=== PATIENT | male | born 1945 | race Caucasian/White ===

== ENCOUNTER → 2017-08-25 | Outpatient (CLI) | payer OTHER | LOC: BMCIMAGING 11:25 | PROVIDERS: ATTEND Neurological Surgery | DX: M51.36 Other intervertebral disc degeneration, lumbar region (principal); M53.86 Other specified dorsopathies, lumbar region ==

== ENCOUNTER 2017-10-11 05:41 | Inpatient (IN) | payer OTHER ==
[2017-10-11] MEDS ORDERED: ceFAZolin 2 GM/SWFI 2 GM/20 ML SYR IVP ONE (05:50)
[2017-10-11] MEDS ORDERED: GABAPENTIN 300 MG CAP PO ONE (05:50)
[2017-10-11] MEDS ORDERED: ACETAMINOPHEN 500 MG TAB PO ONE (05:50)
[2017-10-11] MEDS ORDERED: morphINE PF 5 MG/10 ML INJ IT ONE (05:50)
[2017-10-11] MEDS ORDERED: BUPIVACAINE 0.25% 30 ML SDV ONE (06:39)
[2017-10-11] MEDS ORDERED: THROMBIN (BOVINE) 20,000 UNIT VIAL TP ONE (06:39)
[2017-10-11] MEDS ORDERED: CHLORHEXIDINE GLUC HIBICLENS 118 ML BTL TP ONE (06:40)
[2017-10-11] MEDS ORDERED: CITRATE DEXTROSE SOLN 500 ML BAG ONE ×2 (06:40→07:44)
[2017-10-11] MEDS ORDERED: BACITRACIN 50,000 UNITS/10 ML SYR IRR ONE (06:41)
[2017-10-11] MEDS ORDERED: PROPOFOL 200 MG/20 ML VIAL ONE (06:43)
[2017-10-11] MEDS ORDERED: REMIFENTANIL HCL 1 MG VIAL ONE ×2 (06:43→09:50)
[2017-10-11] MEDS ORDERED: fentaNYL 100 MCG/2 ML INJ ONE (06:43)
[2017-10-11] MEDS ORDERED: PROPOFOL/EMULSION 500 MG/50 ML BOTTLE IV ONE ×2 (06:43→09:50)
[2017-10-11] MEDS ORDERED: LIDOCAINE 2% 100 MG/5 ML SYR ONE (06:48)
--- NOTE | 2017-10-11 06:51 | PDHPUP ---
History & Physical Update H&P update statement: This history and physical update is based on an assessment of the patient which was completed after admission or registration (within 24 hours), but prior to the surgery/procedure. H&P update: H&P reviewed & patient examined, no change in patient's condition since H&P completed H&P changes: Consents signed and sited marked. All questions answered.
--- NOTE | 2017-10-11 07:03 | PDANEPAE ---
ANE History of Present Illness 71 yo M with lumbar radiculopathy here L3-S1 TLIF ANE Past Medical History - Cardiovascular History Hx Hypertension: Yes Hx Arrhythmias: No Hx Chest Pain: No Hx Coronary Artery / Peripheral Vascular Disease: No Hx CHF / Valvular Disease: No Hx Palpitations: No Cardiovascular History Comment: HX OF DVT - Pulmonary History Hx COPD: Yes Hx Asthma/Reactive Airway Disease: No Hx Recent Upper Respiratory Infection: No Hx Oxygen in Use at Home: No Hx Sleep Apnea: No Sleep Apnea Screening Result - Last Documented: Positive Pulmonary History Comment: MILD COPD. pneumonia 2009-resolved - Neurologic History Hx Cerebrovascular Accident: No Hx Seizures: No Hx Dementia: No - Endocrine History Hx Diabetes: No - Renal History Hx Renal Disorders: Yes Renal History Comment: radical prostatectomy for CA 2008 - Liver History Hx Hepatic Disorders: No - Neurological & Psychiatric Hx Hx Neurological and Psychiatric Disorders: Yes Neurological / Psychiatric History Comment: ANXIETY. CLINICAL DEPRESSION. OCD - Cancer History Hx Cancer: Yes Cancer History Comment: PROSTATE. BASAL CELL SKIN CA removed - Congenital Disorder History Hx Congenital Disorders: No - GI History Hx Gastrointestinal Disorders: Yes Gastrointestinal History Comment: diverticulitis. colonoscopy 2012-1 polyp - Other Health History Other Health History: BRUISES EASILY, anemia in past takes iron. osteoarthritis all joints. bilateral dentures. blood clot R leg post knee scope 2010. Coumadin < than 1 yr. - Chronic Pain History Chronic Pain: Yes (IN ANKLE FROM BREAK 7 MONTHS AGO) - Surgical History Prior Surgeries: I & D OF RIGHT ANKLE 09/2013. ORIF 08/26. ORIF R TIBIA 2012. I&D R ankle 07/27. I&D 11/27. remove hardware R ankle 01/25. total prostatectomy 2008. R knee plasty 2010. REMOVAL OF HARDWARE 01/25. OR AFTER ACCIDENT 05/2013. RADICAL PROSTATECTOMY 2008. KNEE REPLACEMENT RIGHT KNEE 2010. BROKEN LEFT ANKLE RESULTING IN 2 OPERATIONS REPAIR AND REMOVAL OF HARDWARE. RIGHT ROTATOR CUFF REPAIRS ANE Review of Systems Review of Systems: - Exercise capacity METS (RN): 4 METS ANE Patient History - Allergies Allergies/Adverse Reactions: No Known Allergies Allergy (Unverified 09/12/17 11:34) - Home Medications Home Medications: ARIPiprazole [Abilify 2 mg (*)] 2 mg PO DAILY 06/12/13 [Last Taken 10/11/17 04: 00] Diazepam [Valium 5 MG (*)] 5 - 10 mg PO DAILY PRN 06/12/13 [Last Taken 10/10/17 18:00 20mg] Ferrous Sulfate [Ferrous Sulf 325 MG (*)] 325 mg PO DAILY 06/12/13 [Last Taken 10/04/17] Multivitamins [Multivitamin (*)] 1 tab PO DAILY 07/06/13 [Last Taken 10/04/17] Spencer-3 Fatty Acids [Fish Oil 1000 mg (*)] 2,000 mg PO DAILY 10/09/13 [Last Taken 10/04/17] Aspirin [Aspirin 81mg (*)] 81 mg PO DAILY 09/12/17 [Last Taken 10/04/17] Cholecalciferol Vit D3 [Vitamin D3 2000 units tab (OTC)] 2,000 units PO DAILY [Last Taken 10/04/17] Citalopram Hydrobromide [celeXA 10 MG] 10 mg PO DAILY 09/12/17 [Last Taken 10/11 04:00] Losartan/Hydrochlorothiazide [Losartan-Hctz 100-25 Mg Tab] 1 each PO DAILY 09/12 [Last Taken 10/10/17 08:00] buPROPion SR [Wellbutrin 100mg SR (*)] 100 mg PO DAILY 09/12/17 [Last Taken 04:00] - NPO status NPO Status: no food or drink >8 hours NPO Since - Liquids (Date): 10/10/17 NPO Since - Liquids (Time): 23:55 NPO Since - Solids (Date): 10/03/17 NPO Since - Solids (Time): 23:00 - Anes Hx Anes Hx: no prior problems - Smoking Hx Smoking Status: Former smoker - Alcohol Use Alcohol Use: Rarely - Family Anes Hx Family Anes Hx: none Family Hx Anesthesia Complications: NONE ANE Labs/Vital Signs - Vital Signs Blood Pressure: 129/82 Heart Rate: 76 Respiratory Rate: 18 O2 Sat (%): 94 Height: 177.8 cm Weight: 65.771 kg ANE Physical Exam - Airway Neck exam: FROM Mallampati Score: Class 2 Mouth exam: dentures - Pulmonary Pulmonary: no respiratory distress - Cardiovascular Cardiovascular: regular rate and rhythym - ASA Status ASA Status: III ANE Anesthesia Plan Anesthesia Plan: general endotracheal anesthesia Lines/Monitors: arterial line Total IV Anesthesia: Yes
[2017-10-11] MEDS ORDERED: MIDAZOLAM 2 MG/2 ML VIAL IVP ONE (07:04)
[2017-10-11] MEDS ORDERED: MIDAZOLAM 2 MG/2 ML VIAL ONE (07:13)
[2017-10-11] MEDS ORDERED: PHENYLEPHRINE HCL 100 MCG/ML SYR ONE (08:08)
[2017-10-11] MEDS ORDERED: morphINE PF 5 MG/10 ML INJ ONE (09:39)
[2017-10-11] MEDS ORDERED: SUGAMMADEX SODIUM 200 MG/2 ML VIAL IVP ONE (11:59)
[2017-10-11] MEDS ORDERED: ONDANSETRON 4 MG/2 ML VIAL IVP PRN ×2 (12:07→12:36)
[2017-10-11] MEDS ORDERED: NALOXONE HCL 0.4 MG/ML INJ IVP PRN (12:07)
[2017-10-11] MEDS ORDERED: HYDROmorphONE/DILAUDID 1 MG/ML INJ IVP PRN ×2 (12:07→12:36)
[2017-10-11] MEDS ORDERED: MEPERIDINE 25 MG/ML SYR IVP PRN (12:07)
[2017-10-11] MEDS ORDERED: PROMETHAZINE HCL 25 MG/ML INJ IVP PRN ×2 (12:07→12:36)
[2017-10-11] MEDS ORDERED: fentaNYL 100 MCG/2 ML INJ IVP PRN (12:07)
[2017-10-11] MEDS ORDERED: HYDROmorphONE/DILAUDID 2 MG/ML INJ ONE (12:11)
[2017-10-11] MEDS ORDERED: LACTULOSE 20 GM/30 ML UDCUP PO PRN (12:36)
[2017-10-11] MEDS ORDERED: POLYETHYLENE GLYCOL 3350 17 GM PKT PO PRN (12:36)
[2017-10-11] MEDS ORDERED: MAGNESIUM HYDROXIDE 30 ML UDCUP PO PRN (12:36)
[2017-10-11] MEDS ORDERED: METHOCARBAMOL 750 MG TAB PO PRN (12:36)
[2017-10-11] MEDS ORDERED: ONDANSETRON DISINTEGRATING 4 MG TAB PO PRN (12:36)
[2017-10-11] MEDS ORDERED: diphenhydrAMINE 25 MG CAP PO PRN (12:36)
[2017-10-11] MEDS ORDERED: BISACODYL 10 MG SUPP PR PRN (12:36)
--- NOTE | 2017-10-11 12:44 | POSTOPPROG ---
Post Op Note Date of Operation: 10/11/17 Surgeon: Matilda Fishman Academic Interventionist: Jamey Fishman PA-C Anesthesiologist: Marge Anesthesia: GET(General Endotracheal) Pre-op Diagnosis: lumbar stenosis Post-op Diagnosis: same Indication: Spinal cord compression Procedure: L3-5 laminectomy, L3-S1 TLIF and posterior fusion Findings: See dictation Inf/Abcess present in the surg proc area at time of surgery?: No Depth: Organ Space EBL: 100-500 Complications: none Drains: Walter GUZMÁN Addendum - Addendum .: S: PT in PACU, denies pain O: AAOx3 NAD VSS MAEx4 Motor 5/5 BUE/BLE +LT Incision cdi Jpx1 Rojas A: 71 yo M s/p L3-5 laminectomy, L3-S1 TLIF and posterior fusion P: PT/OT Pain management Brace when OOB TEDs, SCDs, lovenox POD#1 wound care consult - follows with wound care for non healing right yung ulcer, hx of skin graft Post op xrays pending Call NS with any issues D/w Dr Tobin
[2017-10-11] MEDS ORDERED: NS W/ 20 KCl/L 1,000 ML IV SCH (12:45)
[2017-10-11] MEDS ORDERED: LOSARTAN/HCTZ 50/12.5 1 TAB PO SCH (14:30)
[2017-10-11] MEDS: ACETAMINOPHEN 500 MG TAB PO SCH ×2 (14:52→21:31)
[2017-10-11] MEDS: ceFAZolin 2 GM/DEXTROSE 100 ML IV SCH ×2 (14:55→21:30)
[2017-10-11] MEDS: POLYETHYLENE GLYCOL 3350 17 GM PKT PO SCH ×2 (16:24→21:31)
--- NOTE | 2017-10-11 19:46 | GOP ---
[f rep st] OPERATIVE REPORT DATE OF OPERATION: 10/11/2017 SURGEON: Ranulfo Tobin MD BAKED AND GRAPHITE INSPECTOR: Matilda Fishman PA-C. ANESTHESIA: General. PREOPERATIVE DIAGNOSIS: 1. L3 through S1 lumbar spondylosis with scoliosis. 2. Spinal stenosis, L3 through L5. 3. Lateral recess and foraminal stenosis with lower extremity radiculopathy. 4. Lower extremity claudication. 5. Low back pain. 6. Treatment refractory to nonoperative intervention. POSTOPERATIVE DIAGNOSIS: 1. L3 through S1 lumbar spondylosis with scoliosis. 2. Spinal stenosis, L3 through L5. 3. Lateral recess and foraminal stenosis with lower extremity radiculopathy. 4. Lower extremity claudication. 5. Low back pain. 6. Treatment refractory to nonoperative intervention. PROCEDURE PERFORMED: 1. Posterior arthrodesis with approach to L3, L4, L5, S1. 2. Posterolateral fusion with bilateral pedicle screw placement at L3, L4, L5, S1 from the [employer] 4.75 system. 3. Decompressive laminectomy with bilateral mesial facetectomies, L3-L4, L4-L5. 4. Right-sided L5-S1 hemilaminotomy with mesial facetectomy, foraminotomy, nerve root decompression. 5. Left-sided L3-L4 transforaminal lumbar interbody fusion with a 7 x 28 mm titanium PEEK elevate cage filled with morselized autograft and allograft. 6. Right-sided L4-L5 transforaminal lumbar interbody fusion with an 8 x 28 mm titanium PEEK elevate cage filled with morselized autograft and allograft. 7. Right-sided L5-S1 transforaminal lumbar interbody fusion with a 7 x 23 mm titanium PEEK elevate cage filled with morselized autograft and allograft. 8. Posterolateral fusion on the right between L3-4 and left side between L4 and S1 with morselized autograft and allograft. 9. Use of intraoperative 3D Stealth navigation. 10. Use of intraoperative fluoroscopy, less than 1 hour physician time. 11. Use of neuromonitoring. 12. Use of the operating microscope. 13. Injection of preservative-free intrathecal narcotics. FINDINGS: per imaging SPECIMENS: None. ESTIMATED BLOOD LOSS: 300 mL. INDICATIONS: The patient is a 71-year-old gentleman who is very active. He presented with scoliosis and low back pain including claudication and radiculopathy. After failing nonoperative interventions, we decided to proceed forth with surgery as described above. DESCRIPTION OF PROCEDURE: Patient was brought to the operating theater and underwent general endotracheal anesthesia without complications. Venodyne, KELLI hose, and the appropriate lines were placed by Anesthesia. He was flipped prone onto the Walter table and all bony prominences inspected and padded. The lower lumbar region was prepped and draped in the usual sterile surgical fashion. A time-out was completed per protocol and the patient received antibiotics within 1 hour of incision. Using lateral fluoroscopy and a spinal needle, we picked our entry point to the L3 through S1 levels. This was marked in the midline. The incision was infiltrated with Marcaine with epinephrine. The incision was taken down with the scalpel blade and then using the monopolar, taken down the midline through the lumbodorsal fascia and subperiosteal dissection carried out to the transverse processes of L3, L4, L5, S1 bilaterally. Care was taken to preserve the L2-3 facet joint. He had a pretty noticeable scoliosis to the right. The 3D Stealth navigation clamp was attached to the spinous process of L5 and we completed a 3D Stealth navigation spin. Using 3D Stealth navigation, we placed the marine pilot holes for the bilateral pedicle screws into L3, L4, L5, and S1. All holes were manually palpated with no evidence of any cortical breaches. We then tapped and placed 6.5 x 50 mm screws bilaterally in L3, L4, L5, and 6.5 x 45 mm screws bilaterally in S1 from the [employer] Solara 4.75 system. Another 3D Stealth navigation spin demonstrated good placement of the hardware. At this point, the microscope was brought into field to assist with microscopic dissection to maintain illumination and magnification. Using a combination of bur tip on the drill bit, Kerrison punches, and Leksell rongeur, we completed a decompressive laminectomy with bilateral mesial facetectomies at L3-L4 and L4- L5. We also completed a resection of the pars with a foraminotomy on the left side at L3- L4 and right side at L4-L5. We then completed a right-sided L5-S1 hemilaminotomy with mesial facetectomy and foraminotomy with resection of the pars. We first moved up to the L3-L4 level on the left side where we distracted the interspace and completed a left-sided L3-L4 diskectomy. We prepared the cartilaginous endplates and measured the interbody space. We placed a 7 x 28 mm titanium PEEK elevate cage filled with morselized autograft and allograft anteriorly toward the midline. We packed additional morcellized autograft into the disk space for the interbody fusion. We let down the distraction, moved down on the right side to L4-5 where we distracted the interspace and completed a right-sided L4-5 diskectomy. We prepared the cartilaginous endplates and measured the interbody space. We placed an 8 x 28 mm titanium PEEK elevate cage filled with morselized autograft and allograft anteriorly toward the midline. We packed additional morcellized autograft in the disk space interbody fusion and let down the distraction. We then moved down on the right to L5-S1 where we distracted the interbody space on the right side and completed a right-sided L5-S1 diskectomy. We prepared the cartilaginous endplates and measured the interbody space. We placed a 7 x 23 mm titanium PEEK elevate cage filled with morselized autograft and allograft anteriorly toward the midline. We packed additional morcellized autograft into the disk space for the interbody fusion and then let down distraction. We decorticated the bone on the right side between L3-4 and left side between L4 and S1. We irrigated the wound copiously with bacitracin irrigation, placed 2 lordotic rods into the heads of the screws between L3 and S1 and completed a slight derotation maneuver to improve the patient's scoliosis. Given the patient's bone quality, however, we were limited in the amount of improvement we could have in his overall curvature. We then locked the rods in place with the cap screws, which were then tightened per the certified public accountant's setting. We injected preservative-free intrathecal narcotics. We placed morselized autograft and allograft on the right side between L3-4 and left side between L4 and S1 for the posterolateral fusion. A drain was left in the subfascial space and the wound was then closed in multiple layers using Vicryl sutures for the deep layers and Dermabond for the skin. The patient's wounds were dressed sterilely. He was flipped supine onto the transfer cart, where he was awakened, extubated, and taken to the recovery room in stable condition. There were no complications and no noted changes on neuromonitoring throughout the procedure. COMPLICATIONS: None. /[id number]/MODL MTDD
[2017-10-11] MEDS: FAMOTIDINE 20 MG TAB PO SCH (21:30)
[2017-10-11] MEDS: SENNOSIDES/DOCUSATE SODIUM TAB PO SCH (21:31)
--- NOTE | 2017-10-11 22:32 | POSTANESTH ---
Post Anesthetic Evaluation Cardiovascular Status: Normal, Stable, Similar to Pre-Op Cond Respiratory Status: Normal, Stable, Similar to Pre-op Cond. Level of Consciousness/Mental Status: Can Participate in Eval, Alert and Oriented Pain Control: Adequate, Prn Tx Ordered Nausea/Vomiting Control: Adequate, Prn Tx Ordered Complications Possibly Related to Anesthesia: None Noted
[2017-10-11] MEDS ORDERED: NS BOLUS 1000 ML (Wide open) IV ONE (23:00)
[2017-10-12] MEDS: ACETAMINOPHEN 500 MG TAB PO SCH ×3 (05:47→21:26)
--- NOTE | 2017-10-12 08:17 | NEUSURGPN ---
Date of Surgery: 10/11/17 Post Op Day: 1 Assessment/Plan: 71 yo M s/p L3-5 laminectomy, L3-S1 TLIF and posterior fusion PT/OT Pain management Brace when OOB ROSA output ~600ml last night, will check cbc this am-dressing dry TEDs, SCDs, lovenox start today wound care consult - follows with wound care for non healing right yung ulcer, hx of skin graft Post op xrays pending Call NS with any issues D/w Dr Tobin Subjective: Patient sitting in bed ordering breakfast Objective: AAOx3 MAEx4 Motor 5/5 BUE/BLE +LT Right lower leg wound Dressing x2 cdi Jpx1-patent Neuro Check Frequency: per routine Urinary Catheter in Place: No Catheter Insertion Date: 10/11/17 - Physician Discussed Patient with : Crista Neurosurgery Physical Exam - Vitals, I&O, Labs I and O 10/11/17 10/12/17 10/13/17 05:59 05:59 05:59 Intake Total 5790 300 Output Total 1245 80 Balance 4545 220 Weight 65.771 kg Intake: Oral (ml) 375 300 IV Intake (ml) 3200 IV Infused (ml) 2215 NS W/ 20 KCl/L 1,000 ml @ 1000 100 mls/hr IV CONT AGNES Rx#:[id number] Ns 1,000 ml @ Wide Open 1000 IV ONCE ONE Rx#: [id number] ceFAZolin 2 GM/DEXTROSE 215 100 ml @ 200 mls/hr IV Q8HRS [facility] Rx#:[id number] Output: Urine (ml) 300 Catheter 300 Estimated Blood Loss (ml) 300 ROSA Drain Output (ml) 645 80 #1 Posterior Back Walter 645 80 Carr Other: Intake Quantity Yes Sufficient Output Comment Catheter His olivo had a leak so it didn't collect anything Number of Voids Catheter 0 Vital Signs Temp Pulse Resp BP Pulse Ox 36.5 C 69 14 105/68 100 10/12/17 08:00 10/12/17 08:00 10/12/17 08:00 10/12/17 08:00 10/12/17 08:00 ICD10 Worksheet Patient Problems: Problems Problem Status Onset Fracture of proximal end of femur Active Cellulitis and abscess of lower leg Acute
[2017-10-12] MEDS ORDERED: NON-FORMULARY NEW DRUG (Losartan/Hydrochlorothiazide [Losartan-Hctz 100-25 Mg Tab] 1 EACH) PO SCH (09:00)
[2017-10-12] MEDS ORDERED: NON-FORMULARY NEW DRUG (Citalopram Hydrobromide [Celexa 10 Mg] 10 MG) PO SCH (09:00)
[2017-10-12 09:47] LABS: HEMATOCRIT 34.3 % (40.0-51.0); MEAN CELL HEMOGLOBIN 35.9 pg (27.9-34.1); MEAN CELL VOLUME 102.7 fL (81.5-99.8); RED BLOOD CELL COUNT 3.34 10^6/uL (4.40-6.38); RED CELL DISTRIBUTION WIDTH 11.7 % (11.5-15.2)
[2017-10-12] MEDS: POLYETHYLENE GLYCOL 3350 17 GM PKT PO SCH ×3 (09:59→21:26)
[2017-10-12] MEDS: ARIPiprazole 2 MG TAB PO SCH (10:00)
[2017-10-12] MEDS: buPROPion SR 100 MG TAB PO SCH (10:00)
[2017-10-12] MEDS: FAMOTIDINE 20 MG TAB PO SCH ×2 (10:01→21:26)
[2017-10-12] MEDS: MULTIVITAMINS 1 EACH TAB PO SCH (10:01)
[2017-10-12] MEDS: SENNOSIDES/DOCUSATE SODIUM TAB PO SCH ×2 (10:01→21:26)
[2017-10-12] MEDS: CITALOPRAM 20 MG TAB PO SCH (10:02)
[2017-10-12] MEDS: CHOLECALCIFEROL VIT D3 2,000 UNITS TAB/CAP PO SCH (10:02)
[2017-10-12] MEDS: FERROUS SULFATE 325 MG TAB PO SCH (10:02)
[2017-10-12] MEDS: LOSARTAN/HCTZ 50/12.5 1 TAB PO SCH (12:24)
[2017-10-12] MEDS: ENOXAPARIN 40 MG/0.4 ML SYR SC SCH (14:09)
--- NOTE | 2017-10-12 14:16 | ASMTCMCOM ---
CM Note CM Note Notes: Pt in for scheduled spinal surgery, dc needs unclear, PT/OT to eval. Of note pt admits to drinking a bottle of wine a night, may be helpful for SW to talk to pt regarding drinking habits. Date Signed: 10/12/2017 02:16 PM Electronically Signed By:Lynette Zayas RN
--- NOTE | 2017-10-12 16:39 | WOCRNPDOC ---
WOCRN Advanced Assessment Note - Skin Integrity Problem, Advanced Assess Right Ankle Unknown Dressing Type: Allevyn Life Dressing Description: Clean/Dry, Intact Exudate Amount: Scant Exudate Color: Clear, Yellow Exudate Characteristic(s): Serous Integumentary Issue Intervention: Dressing Changed Rachael Wound Tissue: Blanching, Erythema, Swollen Rachael Wound Swelling: Mild Wound Bed Color: Hastings Wound Bed Constitution: Red/Hastings - Non Granular Tissue Wound Edges: Epithelizing, Attached Site Measurement - Head-to-Toe Length X Width X Depth (cm): 0.7x0.8x0.2 Skin Integrity Problem Comment: 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 Allevyn removed. Wound bed cleaned with NS and gauze and measured. Rachael wound skin is red but not warm with scarring and the look of a chronic wound. Will continue with patient's home regiment as he is comfortable with the products. [facility] Wound care will round again early next week if he is still inpatient.
[2017-10-12] MEDS: oxyCODONE IR 5 MG TAB PO PRN (21:28)
[2017-10-13] MEDS: ACETAMINOPHEN 500 MG TAB PO SCH ×3 (05:50→21:50)
--- NOTE | 2017-10-13 07:26 | NEUSURGPN ---
Assessment/Plan: 71 yo M s/p L3-5 laminectomy, L3-S1 TLIF and posterior fusion PT/OT Optimize pain management LSO when OOB ROSA output taper down, will evaluate this afternoon for possible removal TEDs, SCDs, lovenox Appreciate wound care consult - follows with wound care for non healing right yung ulcer, hx of skin graft Post op xrays with intact hardware Call NS with any issues Seen by Dr Tobin and myself Subjective: low back pain, denies any new leg pain, weakness. Objective: NAD A7Ox3 MAEx4 5/ and equal in BUE and BLE. Incision c/d/i. ROSA drain serosanguineous Catheter Insertion Date: 10/11/17 - Physician Patient Seen by : Crista Neurosurgery Physical Exam - Vitals, I&O, Labs I and O 10/12/17 10/13/17 10/14/17 05:59 05:59 05:59 Intake Total 5790 1100 Output Total 1245 1310 Balance 4545 -210 Weight 65.771 kg Intake: Oral (ml) 375 800 IV Intake (ml) 3200 IV Infused (ml) 2215 300 NS W/ 20 KCl/L 1,000 ml @ 1000 300 100 mls/hr IV CONT AGNES Rx#:[id number] Ns 1,000 ml @ Wide Open 1000 IV ONCE ONE Rx#: [id number] ceFAZolin 2 GM/DEXTROSE 215 100 ml @ 200 mls/hr IV Q8HRS [facility] Rx#:[id number] Output: Urine (ml) 300 850 Catheter 300 Urinal 850 Estimated Blood Loss (ml) 300 ROSA Drain Output (ml) 645 460 #1 Posterior Back [place] 645 460 Carr Other: Intake Quantity Yes Yes Sufficient Output Comment Catheter His olivo had a leak so it didn't collect anything Number of Voids Catheter 0 Urinal 1 Vital Signs Temp Pulse Resp BP Pulse Ox 36.6 C 82 18 153/97 H 92 10/13/17 07:22 10/13/17 07:22 10/13/17 07:22 10/13/17 07:22 10/13/17 07:22 Laboratory Results 10/12/17 09:35 ICD10 Worksheet Patient Problems: Problems Problem Status Onset Fracture of proximal end of femur Active Cellulitis and abscess of lower leg Acute
[2017-10-13] MEDS: ENOXAPARIN 40 MG/0.4 ML SYR SC SCH (08:53)
[2017-10-13] MEDS: LOSARTAN/HCTZ 50/12.5 1 TAB PO SCH (08:54)
[2017-10-13] MEDS: buPROPion SR 100 MG TAB PO SCH (08:55)
[2017-10-13] MEDS: ARIPiprazole 2 MG TAB PO SCH (08:55)
[2017-10-13] MEDS: MULTIVITAMINS 1 EACH TAB PO SCH (08:55)
[2017-10-13] MEDS: FERROUS SULFATE 325 MG TAB PO SCH (08:55)
[2017-10-13] MEDS: CITALOPRAM 20 MG TAB PO SCH (08:55)
[2017-10-13] MEDS: oxyCODONE IR 5 MG TAB PO PRN ×2 (08:56→21:49)
[2017-10-13] MEDS: CHOLECALCIFEROL VIT D3 2,000 UNITS TAB/CAP PO SCH (08:57)
[2017-10-13] MEDS: FAMOTIDINE 20 MG TAB PO SCH ×2 (08:57→21:51)
[2017-10-13] MEDS: POLYETHYLENE GLYCOL 3350 17 GM PKT PO SCH ×3 (09:03→23:16)
[2017-10-13] MEDS: SENNOSIDES/DOCUSATE SODIUM TAB PO SCH ×2 (09:04→23:16)
[2017-10-14] MEDS: oxyCODONE IR 5 MG TAB PO PRN ×2 (03:04→12:22)
[2017-10-14] MEDS: ACETAMINOPHEN 500 MG TAB PO SCH (05:38)
[2017-10-14 07:15] VITALS: RESP 18
[2017-10-14 07:21] VITALS: BP 118/75; PULSE 68; TEMP 99.5; O2SAT 97
--- NOTE | 2017-10-14 07:32 | NEUSURGPN ---
Assessment/Plan: 71 yo M s/p L3-5 laminectomy, L3-S1 TLIF and posterior fusion POD 3 PT/OT Optimize pain management LSO when OOB Will d/c ROSA drain today TEDs, SCDs, lovenox Appreciate wound care consult - follows with wound care for non healing right yung ulcer, hx of skin graft Post op xrays with intact hardware Call NS with any issues Discussed with Dr. Tobin Dispo planning Subjective: low back pain, tolerable with medications. Denies any new leg pain. Objective: NAD A&Ox3 MAEx4 03/18 and equal in BUE and BLE. Incison c/d/i Catheter Insertion Date: 10/11/17 - Physician Patient Seen by : Crista Neurosurgery Physical Exam - Vitals, I&O, Labs I and O 10/13/17 10/14/17 10/15/17 05:59 05:59 05:59 Intake Total 1100 2100 Output Total 1310 230 Balance -210 1870 Intake: Oral (ml) 800 2100 IV Infused (ml) 300 NS W/ 20 KCl/L 1,000 ml @ 300 100 mls/hr IV CONT AGNES Rx#:[id number] Output: Urine (ml) 850 Urinal 850 ROSA Drain Output (ml) 460 230 #1 Posterior Back Walter 460 230 Carr Other: Intake Quantity Yes Sufficient Number of Voids Toilet 3 Urinal 1 1 Vital Signs Temp Pulse Resp BP Pulse Ox 37.5 C 68 18 118/75 97 10/14/17 07:13 10/14/17 07:13 10/14/17 07:13 10/14/17 07:13 10/14/17 07:13 Laboratory Results 10/12/17 09:35 ICD10 Worksheet Patient Problems: Problems Problem Status Onset Fracture of proximal end of femur Active Cellulitis and abscess of lower leg Acute
[2017-10-14] MEDS: SENNOSIDES/DOCUSATE SODIUM TAB PO SCH (09:00)
[2017-10-14] MEDS: MULTIVITAMINS 1 EACH TAB PO SCH (09:00)
[2017-10-14] MEDS: CITALOPRAM 20 MG TAB PO SCH (09:00)
[2017-10-14] MEDS: FERROUS SULFATE 325 MG TAB PO SCH (09:01)
[2017-10-14] MEDS: LOSARTAN/HCTZ 50/12.5 1 TAB PO SCH (09:01)
[2017-10-14] MEDS: ENOXAPARIN 40 MG/0.4 ML SYR SC SCH (09:01)
[2017-10-14] MEDS: CHOLECALCIFEROL VIT D3 2,000 UNITS TAB/CAP PO SCH (09:01)
[2017-10-14] MEDS: FAMOTIDINE 20 MG TAB PO SCH (09:01)
[2017-10-14] MEDS: buPROPion SR 100 MG TAB PO SCH (09:01)
[2017-10-14] MEDS: POLYETHYLENE GLYCOL 3350 17 GM PKT PO SCH (09:16)
[2017-10-14] MEDS: ARIPiprazole 2 MG TAB PO SCH (09:17)
--- NOTE | 2017-10-14 14:06 | ASDISCHSUM ---
Discharge Information Plan Status:Home with No Needs Medically Cleared to Leave: Discharge Date:10/14/2017 12:56 PM CM D/C Disposition:Home, Routine, Self-Care ADT D/C Disposition:Home, Routine, Self-Care Projected Discharge Date:10/14/2017 12:56 PM Transportation at D/C: Discharge Delay Reason: Follow-Up Date:10/14/2017 12:56 PM Discharge Slot: Final Diagnosis: Placement Information Patient Contact Information Contact Name:TREMAINE Relationship: Address:[address] [place] [address] Work Phone: City:[place] Alternate Phone: [facility]/Zip Code:[place] [address] Email: Financial Information Financial Class: Primary Plan Desc:MEDICARE IP PART B ONLY Primary Plan Number:[id number] Secondary Plan Desc:GIANNI DEEPTI PPO Secondary Plan Number:[id number] Assessment Information [facility] CM Progress Note CM Note CM Note Notes: Pt in for scheduled spinal surgery, dc needs unclear, PT/OT to eval. Of note pt admits to drinking a bottle of wine a night, may be helpful for SW to talk to pt regarding drinking habits. Date Signed: 10/12/2017 02:16 PM Electronically Signed By:Lynette Zayas RN [facility] CM Progress Note CM Note CM Note Notes: Pt medically stable for d/c, no CM d/c needs identified. Date Signed: 10/14/2017 02:06 PM Electronically Signed By:FERDINAND Mcmahon Intervention Information Intervention Type:*IM-Signed Date of Service:10/14/2017 10:06 AM Patient Type:Inpatient Staff Member:Aimee Poon Hours: Discipline: Severity: Comment:
== END 2017-10-14 12:56 | disposition home or self-care (01) | DRG 457 ==
LOC: F3N 05:41
PROVIDERS: ADMIT Neurological Surgery; ATTEND Neurological Surgery
PROC: 0SG10AJ Fusion of 2 or more Lumbar Vertebral Joints with Interbody Fusion Device, Posterior Approach, Anterior Column, Open Approach (ICD-10-PCS; principal; 2017-10-11 07:15)
PROC: 01NB0ZZ Release Lumbar Nerve, Open Approach (ICD-10-PCS; principal; 2017-10-11 07:15)
PROC: 0SB40ZZ Excision of Lumbosacral Disc, Open Approach (ICD-10-PCS; principal; 2017-10-11 07:15)
PROC: 0SG30AJ Fusion of Lumbosacral Joint with Interbody Fusion Device, Posterior Approach, Anterior Column, Open Approach (ICD-10-PCS; principal; 2017-10-11 07:15)
DX: M47.26 Other spondylosis with radiculopathy, lumbar region (principal); M47.27 Other spondylosis with radiculopathy, lumbosacral region; M48.062 Spinal stenosis, lumbar region with neurogenic claudication; M48.07 Spinal stenosis, lumbosacral region; M41.56 Other secondary scoliosis, lumbar region; M43.16 Spondylolisthesis, lumbar region; L97.911 Non-pressure chronic ulcer of unspecified part of right lower leg limited to breakdown of skin; I10 Essential (primary) hypertension; J44.9 Chronic obstructive pulmonary disease, unspecified; Z87.891 Personal history of nicotine dependence; Z85.46 Personal history of malignant neoplasm of prostate; Z96.651 Presence of right artificial knee joint
CPT/HCPCS: 97116-GP; 97161-GP; 97165-GO; 97535-GO; C1713; G8978-GP-CI; G8979-GP-CI; G8987-GO-CJ; G8988-GO-CI; J0171; J0690; J1170; J1650; J2001; J2250; J2274; J2370; J2704; J3010; J7060

== ENCOUNTER → 2017-11-17 | Outpatient (CLI) | payer OTHER | LOC: BMCIMAGING 13:34 | PROVIDERS: ATTEND Physician Assistant | DX: M21.751 Unequal limb length (acquired), right femur (principal); M41.86 Other forms of scoliosis, lumbar region ==

== ENCOUNTER → 2018-01-03 | Outpatient (CLI) | payer OTHER | LOC: BMCIMAGING 12:05 | PROVIDERS: ATTEND Neurological Surgery | DX: Z09 Encounter for follow-up examination after completed treatment for conditions other than malignant neoplasm (principal); Z98.890 Other specified postprocedural states; M21.751 Unequal limb length (acquired), right femur ==

== ENCOUNTER → 2018-03-22 | Outpatient (CLI) | payer OTHER | LOC: BMCIMAGING 12:02 | PROVIDERS: ATTEND Physician Assistant Surgical | DX: M51.36 Other intervertebral disc degeneration, lumbar region (principal); M41.86 Other forms of scoliosis, lumbar region; Z98.1 Arthrodesis status ==

== ENCOUNTER → 2018-09-29 | Outpatient (CLI) | payer OTHER | LOC: BMCIMAGING 13:13 | PROVIDERS: ATTEND Physician Assistant Surgical | DX: Z98.1 Arthrodesis status (principal) ==

== ENCOUNTER → 2019-01-01 | Outpatient (CLI) | payer OTHER | LOC: BMCIMAGING 12:43 | PROVIDERS: ATTEND Nurse Practitioner Adult Health | DX: F10.20 Alcohol dependence, uncomplicated (principal); E87.1 Hypo-osmolality and hyponatremia ==